=== PATIENT | male | born 1985 | race Caucasian/White ===

== ENCOUNTER 2019-10-04 12:35 | Inpatient (IN) | payer MEDICAID ==
[~2019-10-04] VITALS: Ht 175.3 cm; Wt 67.2 kg
[2019-10-04] MEDS ORDERED: DiphenhydrAMINE HCL 50 MG/ML VIAL IM ONE ×2 (14:15)
[2019-10-04] MEDS ORDERED: LORazepam 2 MG/ML VIAL IM ONE ×2 (14:15)
[2019-10-04] MEDS ORDERED: HALOPERIDOL LACTATE 5 MG/ML VIAL IM ONE ×2 (14:15)
[2019-10-04 14:19] LABS: AMPHET/METH SCREEN,URINE NEGATIVE (NEGATIVE); BARBITURATE SCREEN, URINE NEGATIVE (NEGATIVE); BENZODIAZEPINES SCREEN,URINE NEGATIVE (NEGATIVE); CANNABINOID SCREEN,URINE NEGATIVE (NEGATIVE); COCAINE SCREEN,URINE NEGATIVE (NEGATIVE); METHADONE SCREEN, URINE NEGATIVE (NEGATIVE); OPIATE SCREEN,URINE NEGATIVE (NEGATIVE)
[2019-10-04 14:20] LABS: PHENCYCLIDINE SCREEN,URINE NEGATIVE (NEGATIVE)
[2019-10-04] MEDS ORDERED: ZOLPIDEM TARTRATE 10 MG TABLET PO PRN (15:30)
[2019-10-04] MEDS ORDERED: LORazepam 2 MG TABLET PO PRN (15:30)
[2019-10-04] MEDS ORDERED: HALOPERIDOL 5 MG TABLET PO PRN (15:30)
[2019-10-04 15:34] LABS: BASOPHILS % (AUTO) 0.5 % (0.0-2.0); EOSINOPHILS % (AUTO) 0.1 % (1.0-6.0); HEMATOCRIT 37.8 % (41-53); HEMOGLOBIN 13.1 g/dL (13.5-17.5); LYMPHOCYTES # (AUTO) 1.2 K/uL (1.0-4.8); LYMPHOCYTES % (AUTO) 18.2 % (22.0-44.0); MEAN CORPUSCULAR HEMOGLOBIN 30.6 pg (26.0-34.0); MEAN CORPUSCULAR HGB CONC 34.5 G/dL (31.0-37.0); MEAN CORPUSCULAR VOLUME 89 fL (80-100); MONOCYTES # (AUTO) 0.7 K/uL (0.1-1.0); MONOCYTES % (AUTO) 10.3 % (2.0-9.0); NEUTROPHILS # (AUTO) 4.8 K/uL (1.8-7.7); NEUTROPHILS % (AUTO) 70.9 % (40.0-70.0); PLATELET COUNT (AUTO) 246 K/uL (150-450); RED BLOOD CELL COUNT(AUTO) 4.27 MIL/uL (4.50-5.90)
[2019-10-04 15:44] LABS: ANION GAP 8 mmol/L (8-16); CALCIUM, TOTAL 9.1 mg/dL (8.8-10.5); CARBON DIOXIDE 26 mmol/L (22-29); CHLORIDE 104 mmol/L (98-107); CREATININE 0.96 mg/dL (0.60-1.30); GLOMERULAR FILTR. RATE CALC > 60 mL/min (>60); GLUCOSE,RANDOM 95 mg/dL (70-110); POTASSIUM 3.6 mmol/L (3.5-5.1); SODIUM SERUM 138 mmol/L (136-145); UREA NITROGEN, BLOOD 11 mg/dL (7-18)
[2019-10-04 15:49] LABS: ALANINE AMINOTRANSFERASE 22 U/L (12-78); ALBUMIN 4.2 g/dL (3.4-5.0); ALKALINE PHOSPHATASE 34 U/L (46-116); ASPARTATE AMINOTRANSFERASE 21 U/L (15-37); BILIRUBIN,TOTAL 0.7 mg/dL (0.1-1.0); TOTAL PROTEIN, SERUM 7.2 g/dL (6.4-8.2)
[2019-10-04 20:16] VITALS: BP 118/78
[2019-10-05 05:25] VITALS: BP 116/72
[2019-10-05] MEDS ORDERED: ACETAMINOPHEN 325 MG TABLET PO PRN (08:00)
[2019-10-05] MEDS ORDERED: NICOTINE 14 MG/24 HOUR PATCH TD PRN (08:00)
[2019-10-05] MEDS ORDERED: MAG HYDROX/AL HYDROX/SIMETH ES 30 ML SUSPENSION UDCUP PO PRN (08:00)
[2019-10-05] MEDS ORDERED: MAGNESIUM HYDROXIDE SUSPENSION 30 ML UDCUP PO PRN (08:00)
[2019-10-05] MEDS ORDERED: DOCUSATE SODIUM 100 MG CAPSULE PO PRN (08:00)
[2019-10-05] MEDS ORDERED: PETROLATUM,WHITE 28 GM JELLY TP PRN (08:00)
[2019-10-05] MEDS ORDERED: GuaiFENesin/D-METHORPHAN [SUGAR-FREE] 200-20MG/10 ML SYRUP UDCUP PO PRN (08:00)
[2019-10-05] MEDS ORDERED: LOPERAMIDE HCL 2 MG CAPSULE PO PRN (08:00)
[2019-10-05] MEDS ORDERED: ONDANSETRON HCL 4 MG TABLET PO PRN (08:00)
[2019-10-05] MEDS ORDERED: IBUPROFEN 400 MG TABLET PO PRN (08:00)
[2019-10-05] MEDS ORDERED: CloNIDine HCL 0.1 MG TABLET PO PRN (08:00)
[2019-10-05] MEDS ORDERED: ALBUTEROL SULFATE HFA 90 MCG/PUFF 8 GM INHALER IH PRN (08:00)
[2019-10-05] MEDS: RisperiDONE 1 MG TABLET PO SCH ×2 (10:13→20:40)
[2019-10-05 16:08] VITALS: BP 126/72
[2019-10-05] MEDS: LORazepam 1 MG TABLET PO PRN (17:55)
[2019-10-06 06:28] VITALS: BP 129/74
[2019-10-06 08:21] VITALS: BP 128/81
[2019-10-06] MEDS: RisperiDONE 1 MG TABLET PO SCH ×2 (09:00→21:05)
[2019-10-06] MEDS: LORazepam 1 MG TABLET PO PRN (21:07)
[2019-10-07 04:13] VITALS: BP 130/68
[2019-10-07 08:14] VITALS: BP 125/79
[2019-10-07] MEDS: RisperiDONE 1 MG TABLET PO SCH ×2 (08:25→21:02)
[2019-10-07 16:14] VITALS: BP 120/74
[2019-10-08 04:00] VITALS: BP 110/69
[2019-10-08] MEDS: RisperiDONE 1 MG TABLET PO SCH (08:09)
[2019-10-08 08:11] VITALS: BP 133/80
[2019-10-08] MEDS ORDERED: RISP0.5T20 PO (08:31)
== END 2019-10-08 09:45 | disposition home or self-care (01) | DRG 885 ==
LOC: EMS 12:36 → B3A 16:14
PROVIDERS: ADMIT Psychiatry & Neurology Child & Adolescent Psychiatry; ATTEND Psychiatry & Neurology Child & Adolescent Psychiatry
DX: F25.9 Schizoaffective disorder, unspecified (principal); Z59.0 Homelessness; D64.9 Anemia, unspecified; F64.0 Transsexualism
CPT/HCPCS: 99291; G0480; J1200; J1630; J2060